=== PATIENT | male | born 1995 | race Caucasian/White ===

== ENCOUNTER 2019-09-21 15:31 | Emergency (ER) | payer BC, OTHER, SELFPAY ==
[2019-09-21 16:05] VITALS: BP 119/72; PULSE 101; RESP 20; TEMP 36.3; O2SAT 100
--- NOTE | 2019-09-21 16:06 | ED.SKABFB ---
HPI - Skin/Abscess/Foreign Bdy General Chief complaint: Skin/Abscess/Foreign Body Stated complaint: blister foot Time Seen by Provider: 09/21/19 16:09 Source: patient and RN notes reviewed Mode of arrival: ambulatory Limitations: no limitations History of Present Illness HPI narrative: 24-year-old male presents with concern for a blister on the left heel area. Reports is been there for several weeks. Reports it is gotten red, painful. Thinks that he got the blister from wearing shoes that rubbed on his ankle. Denies fever, malaise. Reports some bloody drainage. complaint: other (Blister) Related Data Allergies Allergy/AdvReac Type Severity Reaction Status Date / Time No Known Allergies Allergy Verified 09/21/19 16:09 Review of Systems Review of Systems: Narrative: CONSTITUTIONAL: Denies malaise, chills, sweats, or fever. SKIN: Denies rash or itching. Reports painful, red, tender blister to the back of his left ankle MUSCULOSKELETAL: Denies decreased range of motion, musculoskeletal pain. NEUROLOGIC: Denies numbness, weakness. All systems reviewed & are unremarkable except as noted in HPI and below PMFSH Social History Social History Gender identity (if verbalized by the patient): Male Comments At time of signature, agree with nursing past medical, surgical, social and family history. There is no relevant family history pertinent to the presenting complaint Exam Narrative: Exam Narrative: GENERAL: Well-appearing, well-nourished, and in no acute distress. HEAD: Normocephalic EYES: PERRLA, conjunctivae clear ENT: Nares clear. Mucous membranes moist. NECK: Supple. CHEST: No respiratory distress. Speaks in full sentences. HEART: Regular rate and rhythm. EXTREMITIES: Left foot, digits have normal range of motion, normal strength and sensation. SKIN: Warm, dry, no rash. 3 cm x 1 and half centimeter area of erythema, induration, tenderness, warmth at the left posterior ankle/heel area with 0.5 cm area of open skin with small amount of bloody drainage. NEURO: Alert and oriented x3. PSYCH: Normal mood and affect Course Course Emergency Course: Patient is aware of diagnosis, understands and agrees to treatment plan. Anticipatory guidance given. Patient agrees to follow-up as directed and is aware of reasons to seek care at the emergency department. Portions of this record may have been created with voice recognition software Vital Signs Vital signs: Vital Signs Temperature 97.4 F L 09/21/19 16:05 Pulse Rate 101 H 09/21/19 16:05 Respiratory Rate 09/21/19 16:05 Blood Pressure 119/72 09/21/19 16:05 Pulse Oximetry 100 09/21/19 16:05 Temperature 97.4 F L 09/21/19 16:05 Pulse Rate 101 H 09/21/19 16:05 Respiratory Rate 20 09/21/19 16:05 Blood Pressure 119/72 09/21/19 16:05 Pulse Oximetry 100 09/21/19 16:05 Reviewed. MDM - Skin/Abscess/Foreign Bdy MDM Narrative Medical decision making narrative: Exam findings show no acute concerns or changes; patient is non-toxic appearing and is in no distress. Patient is appropriate for outpatient treatment and follow-up. Differential Diagnosis Differential diagnosis: Likely abscess of skin or subcutaneous tissue, urticaria, cellulitis, impetigo and contact dermatitis Critical Care Time Critical Care Time Critical Care Time: No Discharge Plan Discharge Clinical Impression: Cellulitis Qualifiers: Site of cellulitis: extremity Site of cellulitis of extremity: lower extremity Laterality: left Qualified Code(s): L03.116 - Cellulitis of left lower limb Patient Disposition: Home, Self-Care Condition: Stable Instructions: Antibiotic Form, Cellulitis (ED) Additional Instructions: Please follow up with your Primary Care Doctor within 48-72 hours - call for an appointment. Rest and elevate affected area; apply moist heat 3-4 times daily for 10-15 minutes. Take Motrin 600mg every 8 hours with food for pain. Please take Antibiotics as
== END 2019-09-21 16:27 | disposition home or self-care (01) ==
PROVIDERS: Emergency Provider Nurse Practitioner
DX: L03.116 Cellulitis of left lower limb (principal)
CPT/HCPCS: 99213; G0463

== ENCOUNTER 2021-06-12 10:54 | Emergency (ER) | payer BC, MEDICAID, SELFPAY ==
--- NOTE | ~2021-06-12 | XR_ITS ---
XR chest 2V 06/12/2021 11:39 Indication: Chest pain Procedure: 2 view chest Comparison: No prior studies for comparison. Findings: Large right pneumothorax with mediastinal shift to the left. No significant effusion. No ac kristie osseous abnormality. No focal consolidation. There is atelectasis of the right lung. Impression: 1: Large right pneumothorax with mediastinal shift to the left. Dr. Damon Wellington discussed with Lu Sheppard NP at 06/12/2021 11:44 CDT. Reviewed, dictated and finalized at location A. Impression: 1: Large right pneumothorax with mediastinal shift to the left. Dr. Damon Wellington discussed with Lu Sheppard NP at 06/12/2021 11:44 CDT.
[2021-06-12 11:06] VITALS: BP 114/79; PULSE 101; RESP 16; TEMP 36.5; O2SAT 98
[2021-06-12 11:07] VITALS: BP 114/79; PULSE 101; RESP 16; TEMP 36.5; O2SAT 98
--- NOTE | 2021-06-12 11:18 | ED.GENADULT ---
HPI - General Adult General Chief complaint: Unspecified Stated complaint: Chest Pain Time Seen by Provider: 06/12/21 11:18 Source: patient Mode of arrival: ambulatory Limitations: no limitations History of Present Illness HPI narrative: 26-year-old male presents with complaint of right-sided and midsternal chest pain that started yesterday afternoon. Patient states that he was at work and pain started randomly. Denies injury. States when he lays on his right side or back pain is worse. Reports that when eating he feels full quicker. After breakfast this morning pain was worse, history of acid reflux, took 4 Tums without relief. Patient speaking in full sentences, no respiratory distress. All systems reviewed and negative except as noted above. Related Data Allergies Allergy/AdvReac Type Severity Reaction Status Date / Time No Known Allergies Allergy Verified 06/12/21 10:56 Review of Systems Review of Systems: CONSTITUTIONAL: Denies fever, chills, or sweats. EYES: Denies visual changes, redness, or discharge. ENT: Denies rhinorrhea, congestion, sore throat, or otalgia. CARDIOVASCULAR: Reports chest pain. Denies palpitations, or edema. RESPIRATORY: Denies cough or dyspnea. GASTROINTESTINAL: Denies abdominal pain, nausea, vomiting, or diarrhea. GENITOURINARY: Denies dysuria or hematuria. SKIN: Denies rash or itching. MUSCULOSKELETAL: Denies back pain, joint pain, or myalgia. NEUROLOGIC: Denies headache, numbness, or weakness. PSYCHIATRIC: Denies anxiety or depression. All other systems reviewed are negative, except as documented in HPI. PMFSH Social History Social History Gender identity (if verbalized by the patient): Male Comments At time of signature, agree with nursing past medical, surgical, social and family history. There is no relevant family history pertinent to the presenting complaint. Exam Narrative: GENERAL: This is a well-nourished, well-developed patient, in no apparent distress. HEAD: normocephalic, atraumatic. EYES: PERRL. Sclera clear/white. Vision is grossly intact. EARS: External ears normal NOSE: External nose normal THROAT: Mucous membranes moist NECK: Neck supple, non-tender without lymphadenopathy, masses or thyromegaly. CARDIOVASCULAR: Regular rate and rhythm without murmurs, gallops, or rubs. RESPIRATORY: Decreased lung sounds to right lung field. CHEST: No tenderness on palpation. SKIN: warm, Dry, intact with no suspicious lesions or rash, good texture and turgor. NEURO: awake, alert, and oriented to person, place and time. There were no obvious focal neurologic abnormalities. EXTREMITIES: Normal range of motion BACK: Nontender without deformity. Course Course Level of Care: Express Care Visit Vital Signs Vital signs: Vital Signs Temperature 36.5 C 06/12/21 11:06 Pulse Rate 101 H 06/12/21 11:06 Respiratory Rate 16 06/12/21 11:06 Blood Pressure 114/79 06/12/21 11:06 Pulse Oximetry 98 06/12/21 11:06 Temperature 36.5 C 06/12/21 11:07 Pulse Rate 101 H 06/12/21 11:07 Respiratory Rate 16 06/12/21 11:07 Blood Pressure 114/79 06/12/21 11:07 Pulse Oximetry 98 06/12/21 11:07 Reviewed Transfer Transfered to: [facility] Transfer rationale: Transfer to ER for further evaluation, treatment of large pneumothorax right lung. Accepting physician: MD Dennis Medical Decision Making [facility] Narrative Medical decision making narrative: Transfer to [facility] ER for further treatment of large pneumothorax. Vital signs are stable. No respiratory distress. Vital Signs Vital Signs: Vital Signs Temperature 36.5 C 06/12/21 11:06 Pulse Rate 101 H 06/12/21 11:06 Respiratory Rate 16 06/12/21 11:06 Blood Pressure 114/79 06/12/21 11:06 Pulse Oximetry 98 06/12/21 11:06 Temperature 36.5 C 06/12/21 11:07 Pulse Rate 101 H 06/12/21 11:07 Respiratory Rate 16 06/12/21 11:07 Blood Pressure 114/79 06/12/21 11:07 Pulse Oximetry 98 03
--- NOTE | 2021-06-12 11:41 | ECG_ITS ---
Measurements Intervals [place] Rate: 92 P: 79 MD: 143 QRS: 28 QRSD: 101 T: 26 QT: 322 QTc: 399 Interpretive Statements SINUS RHYTHM NONSPECIFIC T-WAVE ABNORMALITY ABNORMAL ECG NO PREVIOUS ECG AVAILABLE FOR COMPARISON Electronically Signed On 06-12-2021 12:21:46 CDT by Hussein Reyes M.D.
--- NOTE | 2021-06-12 12:05 | PC.NURSE ---
1200-- report called to [facility], and spoke with mannie martínez. pt states that he was wanting to go home to see if step mother could drive him there, and we said that is not in his best interest, and i got permission from pt to contact his father, to have someone come to take him to the er for further care. pt is waiting in treatment room for his family and then go to [facility]. pt now understands that he cannot just go home and try to wait for a ride. pt remains stable, sitting on cart in room.
[2021-06-12 12:15] VITALS: BP 120/80; PULSE 99; RESP 18; O2SAT 98
--- NOTE | 2021-06-12 12:21 | PC.NURSE ---
1211-- pts step mother here to pick him up, and wanted to know if she can take him to [facility] since that is where the father works. explained to step mother that we made arrangements for pt at our facility. pts step mother has [facility] transfer paperwork -- pt left exam room and into step mothers private vehicle in stable, ambulatory condition. 1220-- call made to [facility], and informed that of situation, so in case pt does go to another er, that they will be aware if he doesnt show up.
== END 2021-06-12 12:15 | disposition short-term general hospital (02) ==
PROVIDERS: Emergency Provider Nurse Practitioner Family
DX: J93.9 Pneumothorax, unspecified (principal); R94.31 Abnormal electrocardiogram [ECG] [EKG]
CPT/HCPCS: 71046; 93005; 99213; G0463

== ENCOUNTER 2024-01-23 15:50 | Emergency (ER) | payer BC, SELFPAY ==
[2024-01-23 16:01] VITALS: BP 128/70; PULSE 97; RESP 14; TEMP 36.5; O2SAT 100
--- NOTE | 2024-01-23 16:31 | ED_ITS ---
HPI - Skin/Abscess/Foreign Bdy General Chief complaint: Skin/Abscess/Foreign Body Stated complaint: Right Back Side Swollen Bump Time Seen by Provider: 01/23/24 16:30 Source: patient, RN notes reviewed and old records reviewed Mode of arrival: ambulatory Limitations: no limitations History of Present Illness HPI narrative: Patient presents with complaints of painful bump to right side of back. He reports that he noticed this about a week ago, it has grown in size. There is no active drainage. He denies any injury or trauma. He reports that he has had difficulty sleeping because it is painful each time he rolls over. He has not been taking anything for his symptoms. Voices no other concerns or complaints. Denies any fever, chills, sweats. Related Data Allergies Allergy/AdvReac Type Severity Reaction Status Date / Time No Known Allergies Allergy Verified 01/23/24 15:52 Review of Systems Review of Systems: All systems reviewed & are unremarkable except as noted in HPI and below Constitutional: Constitutional: Reports no additional constitutional complaints ENT: Reports system reviewed and no additional complaints, except as documented Cardiovascular: Cardiovascular: Reports no additional cardiovascular complaints Respiratory: Respiratory: Reports no additional respiratory complaints Gastrointestinal: Gastrointestinal: Reports no additional gastrointestinal complaints Integumentary/Breasts: Skin/Breast: Reports system reviewed and no additional complaints, except as docu, Reports as per HPI, Reports swelling and Reports skin pain PMFSH Social History Social History Gender identity (if verbalized by the patient): Male Comments At the time of my signature, I reviewed and agree with the nursing past medical, surgical, social, and family history. There is no relevant family history pertinent to the patient complaint. Exam Const: General: cooperative, no acute distress, alert and awake Orientation/consciousness: oriented to person, oriented to place and oriented to time HENMT: Head: normal to inspection Resp: Effort & Inspection: normal respiratory effort and able to speak in com plete sentences Auscultation: clear to auscultation bilaterally, no crackles, no rales, no rhonchi and no wheezes Cardio: Palpation: normal PMI Rate: regular rate Rhythm: regular rhythm Heart sounds: S1 normal heart sound present and S2 normal heart sound present Skin: Lesions: lesion noted (Abscess to right side of back, 4 x 4, no active drainage) Neuro: General: oriented to person, oriented to place and oriented to time Cranial nerves: Yes CN's II-XII intact bilaterally Psych: Appearance: grossly normal Thought process: Normal thought process present Insight: Good insight present (Psych) Judgement: Good judgement present (Psych) Course Course Level of Care: Express Care Visit Vital Signs Vital signs: Vital Signs Temperature 97.7 F 01/23/24 16:01 Pulse Rate 97 01/23/24 16:01 Respiratory Rate 14 01/23/24 16:01 Blood Pressure 128/70 01/23/24 16:01 Pulse Oximetry 100 01/23/24 16:01 Oxygen Delivery Room Air 01/23/24 16:01 Temperature 97.7 F 01/23/24 16:01 Pulse Rate 97 01/23/24 16:01 Respiratory Rate 14 01/23/24 16:01 Blood Pressure 128/70 01/23/24 16:01 Pulse Oximetry 100 01/23/24 16:01 Oxygen Delivery Room Air 01/23/24 16:01 Reviewed Procedures Abscess I/D back: Date of Incision: 01/23/24 Time of Incision: 16:50 Side (if applicable): right (back) Sedation/analgesia: none Local Anesthetic: lidocaine 1% Amount of anesthesia used (mL): 8 Technique: incised with #11 blade Amount of fluid expressed (mL): 60 Irrigation: Yes Packing used?: iodoform I&D Results: Pus and Blood MDM - Skin/Abscess/Foreign Bdy MDM Narrative Medical decision making narrative: Abscess drained without difficulty. Patient nontoxic appearing. Packing in place. Start doxy for 7 days. Follow-up with primary care provider. Emergency department for new or worse symptoms. Discharge instructions reviewed with patient, as well as provided in writing per nursing staff. The instructions also include specific and strict return/GO TO THE ER as well as f/u information. All questions have been answered, and the patient deny any further questions with discharge and discharge plan. Some parts of this dictation were generated by voice recognition software and may contain typographical and/or grammatical inaccuracies. Differential Diagnosis Differential diagnosis: Likely abscess of skin or subcutaneous tissue, cellulitis and insect bites Medical Records Attestation: I reviewed the patient's medical records. Discharge Plan Discharge Clinical Impression: Abscess of skin or subcutaneous tissue Qualifiers: Site of cutaneous abscess: trunk Site of cutaneous abscess of trunk: back Qualified Code(s): L02.212 - Cutaneous abscess of back [any part, except buttock] Patient Disposition: Home, Self-Care Condition: Stable Instructions: Antibiotic Form Additional Instructions: Follow with primary care provider. Emergency department for new or worse symptoms. Take all medications as prescribed. Packing to be removed in 48 hours Patient Language: Khmer Prescriptions: New doxycycline monohydrate 100 mg capsule 100 mg PO BID 7 Days Qty: 14 0RF Follow-up/Referrals: PHYSICIAN,WELLNESS PROGRAM ADMINISTRATOR [Primary Care Provider] - Stand Alone Forms: Work/School Release IP Time of Disposition: 17:09
== END 2024-01-23 17:13 | disposition home or self-care (01) ==
PROVIDERS: Emergency Provider Nurse Practitioner Family
DX: L02.212 Cutaneous abscess of back [any part, except buttock and flank] (principal)
CPT/HCPCS: 10061; 87070; 87205; 99213; G0463